=== PATIENT | male | born 1985 | race Caucasian/White ===

== ENCOUNTER 2019-07-22 14:17 | Emergency (ER) | payer OTHER ==
--- NOTE | 2019-07-22 14:55 | ED Physician Documentation ---
PD HPI HEENT - Stated complaint Stated Complaint: LT EAR HEARING LOSS/PX - Chief complaint Chief Complaint: Heent - History obtained from History obtained from: Patient - History of Present Illness Timing - onset: How many days ago (2-3 days of decreased hearing left ear. Got OTC earwax kit and used the ear drops then tried to irrigate ear. He says the hearing got worse with irrigating the ear with bulb syringe.) Timing - duration: Days Location: Left ear, Nose (has had some nasal congestion for couple of weeks. No purulence.) Associated symptoms: No: Fever, Swollen nodes, Cough Similar symptoms before: Has not had sx before Review of Systems Constitutional: denies: Fever, Chills, Myalgias Ears: reports: Loss of hearing. denies: Ear pain, Drainage/discharge, Tinnitus/ringing Nose: reports: Congestion, Sinus pressure / pain Throat: denies: Oral lesions / sores, Sore throat PD PAST MEDICAL HISTORY - Past Medical History Past Medical History: No - Allergies Allergies/Adverse Reactions: Allergies Allergy/AdvReac Type Severity Reaction Status Date / Time No Known Drug Allergies Allergy Verified 07/22/19 14:21 PD ED PE NORMAL - Vitals Vital signs reviewed: Yes - General General: Alert and oriented X 3, No acute distress, Well developed/nourished - HEENT HEENT: Moist mucous membranes, Pharynx benign. No: Ears normal (right with some fluid behind TM, but no redness. Left canal with earwax impacted, and unable to see the TM. ) Results - Vitals Vitals: Vital Signs - 24 hr 07/22/19 07/22/19 14:21 16:05 Temperature 36.9 C 37.5 C Heart Rate 76 77 Respiratory 14 16 Rate Blood Pressure 156/94 H 150/94 H O2 Saturation 97 98 Oxygen O2 Source Room air PD MEDICAL DECISION MAKING - ED course Complexity details: re-evaluated patient (considerable wax with nurse irrigation. Canal now visible and TM wiht some fluid behind it, but not red nor purulent. ), considered differential, d/w patient Departure - Departure Disposition: 01 Home, Self Care Clinical Impression: Impacted ear wax Qualifiers: Laterality: left Qualified Code(s): H61.22 - Impacted cerumen, left ear Serous otitis media Qualifiers: Chronicity: acute Laterality: bilateral Recurrence: non-recurrent Qualified Code(s): H65.03 - Acute serous otitis media, bilateral Condition: Stable Record reviewed to determine appropriate education?: Yes Instructions: ED Otitis Media Serous Adult Follow-Up: Penny Canales MD [Primary Care Provider] - Comments: It does look like some fluid behind both eardrums and likely relates to the head cold symptoms you have. Consider some antihistamines such as Benadryl Claritin or Betzy for the next several days to week. Otherwise ear canal appears good now with the earwax removed. Discharge Date/Time: 07/22/19 16:08
[2019-07-22 16:05] VITALS: BP 150/94
== END 2019-07-22 16:08 | disposition home or self-care (01) ==
LOC: ED 14:17
DX: H65.03 Acute serous otitis media, bilateral (principal); H61.22 Impacted cerumen, left ear
CPT/HCPCS: 99282; 99283